=== PATIENT | female | born 1995 | race Caucasian/White ===

== ENCOUNTER 2017-09-04 23:14 | Emergency (ER) | payer MEDICAID, OTHER ==
--- NOTE | 2017-09-05 01:07 | ER Document Report ---
HPI - HPI Pain Level: 5 Notes: Patient is a 22-year-old female no significant past medical history presents to the ED complaining of a pain near her left scapula that started today when she was at work. Patient is not sure if she was lifting something at the time of her injury did in any way. Patient states that there is one specific spot that hurts the most. Patient states that it feels like a muscle spasm at the same time/cramping. She has not had anything for her symptoms. Patient is requesting a work note. Denies any drug allergies. Denies any headache, fever , head injury, neck pain, URI, sore throat, chest pain, palpitations, syncope, cough, shortness of breath, wheeze, dyspnea, abdominal pain, nausea/vomiting/ diarrhea, urinary retention, dysuria, hematuria, loss of control of bowel or bladder, numbness/tingling, saddle anesthesia, muscle paralysis/weakness, or rash. She has not had any surgeries or procedures to her lower back. Patient does admit to smoking but denies IV drug use. - ROS Systems Reviewed and Negative: Yes All other systems reviewed and negative - REPRODUCTIVE Reproductive: DENIES: : Past Medical History - Social History Smoking Status: Current Every Day Smoker Family History: Reviewed & Not Pertinent Neurological Medical History: Reports: Hx Migraine Psychiatric Medical History: Reports: Hx Attention Deficit Hyperactivity Disorder Denies: Hx Anxiety - Immunizations Immunizations up to date: Yes Hx Diphtheria, Pertussis, Tetanus Vaccination: Yes - 2008 [facility] Provider Document - CONSTITUTIONAL Agree With Documented VS: Yes Notes: PHYSICAL EXAMINATION: GENERAL: Well-appearing, well-nourished and in no acute distress. LUNGS: Breath sounds clear to auscultation bilaterally and equal. No wheezes rales or rhonchi. HEART: Regular rate and rhythm without murmurs, rubs, gallops. ABDOMEN: Soft, nontender, nondistended abdomen. No guarding, no rebound. No masses appreciated. Normal bowel sounds present. No CVA tenderness bilaterally. No pulsatile mass Musculoskeletal: ext's b/l: FROM to passive/active. Strength 5+/5. No deficits noted. No bony tenderness of extremities including the left shoulder. Back: FROM to passive/active. Strength 5+/5. No vertebral point tenderness, stepoffs, or deformities. No other bony tenderness, erythema, swelling, or ecchymosis. SLR negative b/l. + Trigger point to the inferior medial left scapula area, correlates with pain described. Mild spasming. No SI jt tenderness. No foot drop Extremities: No cyanosis, clubbing, or edema b/l. Peripheral pulses 2+. Capillary refill less than 2 seconds. NEUROLOGICAL: Normal speech, normal gait. Normal sensory, motor exams. Reflexes 2+ b/l. PSYCH: Normal mood, normal affect. SKIN: Warm, Dry, normal turgor, no rashes or lesions noted. - INFECTION CONTROL TRAVEL OUTSIDE OF THE [place] IN LAST 30 DAYS: No Course - Re-evaluation Re-evalutation: 09/05/17 01:05 Patient is an afebrile, well-hydrated, 22-year-old female who presents to the ED with a muscle spasm/trigger point to the left medial inferior scapular area. Vitals are acceptable. PE is otherwise unremarkable for any neurovascular compromise, obvious tendon/ligament rupture, obvious fracture/dislocation. No labs or imaging warranted at this time based on H&P. I am able to reproduce her pain with the trigger point that was found. I will send her home with a prescription for muscle relaxer. Conservative measures otherwise for symptoms. Recheck with your PCM in 3-5 days. Consider consult orthopedic/physical therapy. Return to the ED with any worsening/concerning symptoms otherwise as reviewed discharge. Patient is in agreement. - Vital Signs Vital signs: Temp Pulse Resp BP Pulse Ox 98.6 F 93 16 136/65 H 99 09/04/17 23:43 09/04/17 23:43 09/04/17 23:43 09/04/17 23:43 09/04/17 23:43 Discharge - Discharge Clinical Impression: Trigger point of left shoulder region Condition: Stable Disposition: HOME, SELF-CARE Instructions: Muscle Relaxers ([facility]) Additional Instructions: Rest, Ice, Compression, Elevation Tylenol/ibuprofen as needed Light stretches daily Strength exercises as able Moist heat and massage may help F/u with your PCP in 3-5 days for a recheck Consider consult(s) with Orthopedics/physical therapy for ongoing/worsening symptoms Return to the ED with any worsening symptoms and/or development of fever, headache, chest pain, palpitations, syncope, shortness of breath, trouble breathing, abdominal pain, n/v/d, blood in stool/urine, loss of control of bowel /bladder, urinary retention, muscle weakness/paralysis, saddle anesthesia, numbness/tingling, or other worsening symptoms that are concerning to you. Prescriptions: Baclofen [Baclofen 10 mg Tablet] 5 - 10 mg PO BID PRN #10 tablet PRN Reason: Forms: Elevated Blood Pressure, Smoking Cessation Education, Return to Work Referrals: [facility] [Provider Group] - Follow up as needed
[2017-09-05 01:30] VITALS: BP 117/69
== END 2017-09-05 01:28 | disposition home or self-care (01) ==
LOC: ER 23:14
DX: M62.830 Muscle spasm of back (principal); F17.200 Nicotine dependence, unspecified, uncomplicated
CPT/HCPCS: 99283

== ENCOUNTER 2018-07-20 14:02 | Emergency (ER) | payer OTHER ==
[2018-07-20] MEDS ORDERED: DIPH/PERTUSS(ACELL)/TETANUS VAC/PF 0.5 ML SYR (>=10YO) IM ONE (15:19)
[2018-07-20] MEDS ORDERED: ACETAMINOPHEN 325 MG TABLET PO ONE (15:20)
--- NOTE | 2018-07-20 15:20 | ER Document Report ---
ED Medical Screen (RME) - General Chief Complaint: Laceration Stated Complaint: CUT TIP OF LEFT MIDDLE FINGER OFF Time Seen by Provider: 07/20/18 15:14 Mode of Arrival: Ambulatory Information source: Patient Notes: Patient is an otherwise healthy 23-year-old female who presents the emergency department with injury to her left middle finger. There is an avulsion at the tip of the finger. Patient reports she was at work chopping lettuce with a clean knife when this occurred. She does not know if she is up-to-date on her tetanus. There is active bleeding noted. I have greeted and performed a rapid initial assessment of this patient. A comprehensive ED assessment and evaluation of the patient, analysis of test results and completion of the medical decision making process will be conducted by additional ED providers. Dictation of this chart was performed using voice recognition software; therefore, there may be some unintended grammatical errors. TRAVEL OUTSIDE OF THE [place] IN LAST 30 DAYS: No - Related Data Allergies/Adverse Reactions: No Known Allergies Allergy (Verified 07/20/18 14:06) Past Medical History Neurological Medical History: Reports: Hx Migraine Renal/ Medical History: Denies: Hx Peritoneal Dialysis Psychiatric Medical History: Reports: Hx Attention Deficit Hyperactivity Disorder Denies: Hx Anxiety - Immunizations Immunizations up to date: Yes Hx Diphtheria, Pertussis, Tetanus Vaccination: Yes - 2008 Physical Exam - Vital signs Vitals: Temp Pulse Resp BP Pulse Ox 98.1 F 92 14 141/71 H 99 07/20/18 14:12 07/20/18 14:12 07/20/18 14:12 07/20/18 14:12 07/20/18 14:12 Course - Vital Signs Vital signs: Temp Pulse Resp BP Pulse Ox 98.1 F 92 14 141/71 H 99 07/20/18 14:12 07/20/18 14:12 07/20/18 14:12 07/20/18 14:12 07/20/18 14:12
--- NOTE | 2018-07-20 17:43 | ER Document Report ---
ED General - General Chief Complaint: Laceration Stated Complaint: CUT TIP OF LEFT MIDDLE FINGER OFF Time Seen by Provider: 07/20/18 15:14 Primary Care Provider: DEANDRE LOGAN MD [Primary Care Provider] - Follow up as needed Mode of Arrival: Ambulatory Notes: 23-year-old female who presents the emergency department with injury to her left middle finger. There is an avulsion at the tip of the finger. Patient reports she was at work chopping lettuce with a clean knife when this occurred. She states the piece of the finger that was cut off is not with her right now. She does not know if she is up-to-date on her tetanus. There is active bleeding noted. TRAVEL OUTSIDE OF THE [place] IN LAST 30 DAYS: No - Related Data Allergies/Adverse Reactions: No Known Allergies Allergy (Verified 07/20/18 14:06) Past Medical History - General Information source: Patient - Social History Smoking Status: Never Smoker Chew tobacco use (# tins/day): No Frequency of alcohol use: None Drug Abuse: None Family History: Reviewed & Not Pertinent Patient has suicidal ideation: No Patient has homicidal ideation: No Neurological Medical History: Reports: Hx Migraine Renal/ Medical History: Denies: Hx Peritoneal Dialysis Psychiatric Medical History: Reports: Hx Attention Deficit Hyperactivity Disorder Denies: Hx Anxiety - Immunizations Immunizations up to date: Yes Hx Diphtheria, Pertussis, Tetanus Vaccination: Yes - 2008 Physical Exam - Vital signs Vitals: Temp Pulse Resp BP Pulse Ox 98.1 F 92 14 141/71 H 99 07/20/18 14:12 07/20/18 14:12 07/20/18 14:12 07/20/18 14:12 07/20/18 14:12 - Notes Notes: PHYSICAL EXAMINATION: Reviewed vital signs and charting by RN GENERAL: Alert, interacts well. No acute distress. HEAD: Normocephalic, atraumatic. EYES: Pupils equal and round. Extraocular movements intact. ENT: Oral mucosa moist NECK: Full range of motion. Supple. Trachea midline. EXTREMITIES: Moves all 4 extremities spontaneously. No edema, No cyanosis. Normal distal neurovascular exam BACK: No CVAT NEUROLOGIC: Oriented and appropriate. Normal speech. PSYCH: Normal affect, normal mood. SKIN: Warm, dry, normal turgor. Avulsion of left middle fingertip, bleeding controlled, Course - Re-evaluation Re-evalutation: 07/20/18 19:24 Overall well-appearing, digital block performed on left middle finger. Undressed wound and there was an avulsion of the anterior medial aspect of the left middle finger tip with minor nail involvement. Nailbed was not involved. X-ray negative for fracture patient has good range of motion. Patient has good range of motion against resistance. Surgifoam placed on over the wound and wound was dressed. Patient requested to go to [place] I put a referral for [facility] but I also had a Dr. Cifuentes if she is unable to see the [facility]. Patient is stable for discharge with strict return precautions. 07/20/18 19:26 - Vital Signs Vital signs: Temp Pulse Resp BP Pulse Ox 98.1 F 92 14 141/71 H 99 07/20/18 14:12 07/20/18 14:12 07/20/18 14:12 07/20/18 14:12 07/20/18 14:12 Discharge - Discharge Clinical Impression: Finger avulsion Qualifiers: Encounter type: initial encounter Qualified Code(s): S61.209A - Unspecified open wound of unspecified finger without damage to nail, initial encounter Condition: Good Disposition: HOME, SELF-CARE Instructions: Tetanus Immunization Given ([facility]) Additional Instructions: You are seen in the emergency department this evening for an avulsion of your left middle finger. We have placed something called Surgifoam on it that helps to promote wound healing. Please keep it wrapped until you see orthopedics. If your finger starts throbbing we feel that it is too tight you can gently loosen the Covan dressing and reapply it. It is important that the surgery form stays in place in contact with the wound. If you develop fever, chills, nausea, vomiting, inability to move your finger please immediately return to the emergency department. Referrals: DEANDRE LOGAN MD [Primary Care Provider] - Follow up as needed [facility] [Outside] - Follow up tomorrow TANI CIFUENTES DO [ACTIVE STAFF] - Follow up as needed
--- NOTE | 2018-07-20 18:19 | RADIOLOGY REPORT (SQ) ---
EXAM DESCRIPTION: FINGER LEFT COMPLETED DATE/TIME: 07/20/2018 6:12 pm REASON FOR STUDY: L middle fingertip avulsion COMPARISON: None. NUMBER OF VIEWS: Three views. TECHNIQUE: AP, lateral, and oblique images acquired of the left third finger. LIMITATIONS: None. FINDINGS: MINERALIZATION: Normal. BONES: No acute fracture or dislocation. No worrisome bone lesions. SOFT TISSUES: Marked soft-tissue deformity 3rd digit with surrounding bandage. OTHER: No other significant finding. IMPRESSION: No acute fracture. Soft tissue injury. No foreign body. TECHNICAL DOCUMENTATION: JOB ID: [id number] [employer]- All Rights Reserved Reading location - IP/workstation name: [email or web address]
[2018-07-20] MEDS ORDERED: LIDOCAINE 2% INJ (20 MG/ML) 20 ML MDV INJ ONE (18:35)
[2018-07-20 19:37] VITALS: BP 132/77
== END 2018-07-20 19:37 | disposition home or self-care (01) ==
LOC: ER 14:02
DX: S61.209A Unspecified open wound of unspecified finger without damage to nail, initial encounter (principal); W26.0XXA Contact with knife, initial encounter; Y93.G1 Activity, food preparation and clean up; Y92.511 Restaurant or cafe as the place of occurrence of the external cause; Y99.0 Civilian activity done for income or pay; Z23 Encounter for immunization
CPT/HCPCS: 99283; 90471; 73140; 90715; J3490